=== PATIENT | male | born 1995 | race Two or more races ===

== ENCOUNTER 2018-01-21 07:10 | Emergency (ER) | payer SELFPAY ==
[~2018-01-21] VITALS: Ht 167.6 cm; Wt 58.2 kg
[2018-01-21] MEDS ORDERED: predniSONE 20 MG TABLET ONE (07:30)
[2018-01-21] MEDS ORDERED: predniSONE 20 MG TABLET PO ONE (07:30)
[2018-01-21] MEDS ORDERED: diphenhydrAMINE HCL 50 MG CAPSULE ONE (07:30)
[2018-01-21] MEDS ORDERED: diphenhydrAMINE HCL 25 MG CAPSULE PO ONE (07:30)
--- NOTE | 2018-01-21 08:00 | NUR ---
Patient discharged to home in stable condition. Written and verbal after care instructions given. Patient verbalizes understanding of instruction. Mother at BS upon discharge and will drive the patient home.
[2018-01-21 08:07] VITALS: BP 131/84
== END 2018-01-21 08:09 | disposition home or self-care (01) ==
LOC: ER 07:12
DX: J30.81 Allergic rhinitis due to animal (cat) (dog) hair and dander (principal); Z91.040 Latex allergy status; Z91.010 Allergy to peanuts
CPT/HCPCS: 99283; A4606; J7512; Q0163; Z7610